=== PATIENT | male | born 1985 | race Caucasian/White ===

== ENCOUNTER → 2021-01-31 10:41 | Outpatient (BNVA) | payer OTHER, SELFPAY | PROVIDERS: PCP Nurse Practitioner Family; Visit Provider Nurse Practitioner Family | DX: Z20.822 Contact with and (suspected) exposure to COVID-19 (principal); K52.9 Noninfective gastroenteritis and colitis, unspecified | CPT/HCPCS: 80053; 85025; 86705; 86706; 86709; 86803; 87340; 87635 ==

== ENCOUNTER → 2021-04-11 15:31 | Outpatient (BNVA) | payer OTHER, SELFPAY | PROVIDERS: PCP Nurse Practitioner Family; Visit Provider Internal Medicine | DX: R19.7 Diarrhea, unspecified (principal); Z01.812 Encounter for preprocedural laboratory examination; Z20.828 Contact with and (suspected) exposure to other viral communicable diseases | CPT/HCPCS: 87635 ==

== ENCOUNTER 2021-04-17 14:27 | Emergency (ER) | payer OTHER, SELFPAY ==
[2021-04-17 14:43] VITALS: BP 138/91; PULSE 78; RESP 12; TEMP 36.8; O2SAT 97; BMI 31.9
--- NOTE | 2021-04-17 15:44 | ED_ITS ---
HPI - Nausea/Vomiting/Diarrhea General: Chief complaint: Nausea/Vomiting/Diarrhea Stated complaint: N/V/D Time Seen by Provider: 04/17/21 15:43 Source: patient History of Present Illness: HPI Narrative: recently stopped prescription meds and will be doing colonoscopy later this week after he sees specialist but developed NVD about 2 - 3 days ago MD elicited complaint: nausea, vomiting, diarrhea and abdominal pain Associated nausea: Yes Associated symtoms: Reports nausea Review of Systems General: Reports: 10 or more systems reviewed and unremarkable except in HPI and below Const: Reports: change in appetite; Denies: fever(s), chills or body aches GI: Reports: abdominal pain, nausea, vomiting and diarrhea PFSH ED PFSH: Social History Smoking and tobacco status: current some day smoker (Chewing tobacco) Second hand smoke exposure: No Smoking risk assessment/counseling performed?: Yes Alcohol intake: never Desire information about alcohol rehabilitation?: No Counseling given: No Desire information about substance/drug rehabilitation?: No Counseling given: No Adopted: No Caregiver/support person: No Lives independently: Yes Housing: House Highest education level completed: High School Graduate service: No Current occupational status: employed Physical Exam Const: COMMON NORMALS: no acute distress, patient oriented x3, no limitations and alert GENERAL APPEARANCE: cooperative and comfortable ORIENTATION/CONSCIOUSNESS: Yes awake, Yes oriented to person, Yes oriented to place and Yes oriented to time HENMT: COMMON NORMALS: normocephalic, atraumatic, external ears normal, EAC's normal, TM's normal bilaterally and Normal external nose present HEAD & SCALP: normal to inspection, normocephalic and atraumatic FACE & SINUS: normal facial exam, sinuses nontender and face symmetric NOSE: Normal external nose present, Normal nares present and No nasal discharge present EXTERNAL EAR: Yes external ears normal EXTERNAL AUDITORY CANAL: EAC's normal TYMPANIC MEMBRANE: TM's normal bilaterally MOUTH: Normal oral and palatal mucosa present, lip normal and tongue normal THROAT: posterior oropharynx normal, tonsils normal and uvula midline Eye: COMMON NORMALS: Equal, round and reactive pupils present, EOMs intact bilaterally and conjunctivae normal GENERAL EYE: appearance normal, both eyes and all related structures and normal light reflex EYELID: eyelids normal CONJUNCTIVA: Yes conjunctivae normal PUPIL: Yes Equal, round and reactive pupils present EOM: Yes EOM abnormal DIRECT OPHTHALMOSCOPY: Yes normal light reflex Neck/C-Spine: COMMON NORMALS: full ROM, no lymphadenopathy, supple, no meningeal signs, no JVD and Thyroid normal GENERAL: Yes normal visual inspection THYROID: Thyroid normal CERVICAL SPINE: Yes cervical ROM normal and Yes normal cervical lordosis Lymph: LYMPHATIC: no lymphadenopathy noted Chest: COMMONS NORMALS: normal inspection of the chest and normal palpation of entire chest wall Resp: COMMON NORMALS: normal respiratory effort, No retractions and clear to auscultation bilaterally AUSCULTATION: clear to auscultation bilaterally Cardio: COMMON NORMALS: no JVD, regular rate, regular rhythm, S1 normal heart sound present, S2 normal heart sound present, No gallops present (Cardio), No clicks present (Cardio), No murmurs present (Cardio), No rub (Cardio) and Peripheral pulses 2+ throughout RATE: regular rate RHYTHM: regular rhythm HEART SOUNDS: S1 normal heart sound present and S2 normal heart sound present PERIPHERAL PULSES: Peripheral pulses 2+ throughout GI: COMMON NORMALS: Normal to inspection, nondistended, normoactive bowel sounds present, Soft to palpation, non-tender, No hepatosplenomegaly present and no masses PALPATION: Yes Soft to palpation, Yes Tenderness to palpation present (GI) (epigastric) and Yes No hepatosplenomegaly present : COMMON NORMALS: Yes no CVA tenderness BLADDER/KIDNEY EXAM: Yes no CVA tenderness Back/Pelvis: COMMON NORMALS: no CVA tenderness, thoracic and lumbar spine normal to inspection, no thoracic nor lumbar tenderness and thoraco-lumbar ROM normal Extremity: COMMON NORMALS: normal to inspection, full ROM, capillary refill normal, no joint enlargement, no clubbing, cyanosis or edema, no calf tenderness and no pedal edema GENERAL: Yes normal exam except as noted Neuro: COMMON NORMALS: patient oriented x3, moves all extremities, no focal motor deficits, no sensory deficits noted and gait normal SENSORIUM/ORIENTATION: Yes alert, Yes oriented to person, Yes oriented to place and Yes oriented to time MENINGEAL SIGNS: Yes no meningeal signs Psych: COMMON NORMALS: mental status grossly normal, Normal thought process present, cooperative, normal affect, speech normal and activity/motor behavior normal SPEECH: Yes normal speech THOUGHT PROCESS: Normal thought process present Skin: COMMON NORMALS: no rashes or lesions noted, no wounds and turgor normal GENERAL SKIN EXAM: no rashes or lesions noted and turgor normal Course ED course: Pt states he has NVD after DC'ing prescription meds for IBS sympto ms. He will have further work up with his PCP but due to NVD he is not able to hold much liquid down and is afraid of becoming dehydrated prior to his colonoscopy later this week. Zofran and bentyl prescribed. Pt is afebrile. He does not note any specific pain. Will proceed with dc. Vital Signs: Vital signs: Vital Signs Temperature 98.2 F 04/17/21 14:43 Pulse Rate 78 04/17/21 14:43 Respiratory Rate 12 04/17/21 14:43 Blood Pressure 138/91 04/17/21 14:43 Pulse Oximetry 97 04/17/21 14:43 Discharge Plan Discharge Clinical Impression: Vomiting, Gastroenteritis Condition: Stable Prescriptions: New ondansetron HCl [Zofran] 4 mg tablet 4 mg PO Q8H Qty: 20 RF: 0 No Action ibuprofen 800 mg tablet 800 mg PO TID PRN (Reason: pain) Qty: 42 RF: 0 diphenoxylate-atropine [Lomotil] 2.5-0.025 mg tablet 2 tab PO QID PRN (Reason: diarrhea) Qty: 80 RF: 0 sertraline [Zoloft] 25 mg tablet 25 mg PO DAILY 30 Days Qty: 30 RF: 5 Discharge Orders: Discharge ED (Routine); Ordered 04/17/21 Ordered By: Chery Gama Referrals: Maria Dolores Jasmine FNP-C [Primary Care Provider] - Discharge Diet: Clear Liquid Discharge Activity: Increase activity as tolerated Stand Alone Forms: Work/School Release Coding Level of Care Code ED Stock And Station Agent for Paramjit Arango
[2021-04-17] MEDS: ondansetron 4 MG Tablet PO (16:49)
[2021-04-17] MEDS: dicyclomine 10 mg Capsule 20 MG PO (16:49)
[2021-04-17 16:57] VITALS: BP 132/89; PULSE 91; RESP 16; O2SAT 98
== END 2021-04-17 17:08 ==
PROVIDERS: Emergency Provider Nurse Practitioner Family; PCP Nurse Practitioner Family
DX: K52.9 Noninfective gastroenteritis and colitis, unspecified (principal); F17.220 Nicotine dependence, chewing tobacco, uncomplicated
CPT/HCPCS: 99283; Q0162

== ENCOUNTER 2021-04-18 07:37 | Day surgery (SDC) | payer OTHER, SELFPAY ==
[2021-04-14 12:39] VITALS: BMI 31.9
[2021-04-18 07:51] VITALS: BP 144/87; PULSE 81; RESP 16; TEMP 36.3; O2SAT 99
[2021-04-18] MEDS: sodium chloride 0.9% 1,000 ML 30 ML IV (08:03)
--- NOTE | 2021-04-18 08:07 | ANES.PREANE2 ---
Pre-Anesthetic Assessment Pre-Anesthetic Assessment: Height/Weight: Height 1.68 m Weight 89.811 kg Temp Pulse Resp BP Pulse Ox 97.3 F L 81 16 144/87 99 04/18/21 07:51 04/18/21 07:51 04/18/21 07:51 04/18/21 07:51 04/18/21 07:51 Preop Diagnosis: diarrhea Proposed Procedure: Operation Date: 04/18/21 08:45 Proposed Procedures p EGD/Colon 03365 R13.7(Not Applicable) - Rehan Mota MD s Colonoscopy 87785 R19.7(Not Applicable) - Rehan Mota MD Familial anesthetic complications: Hard waking up after nasal reconstruction Was Beta Tom taken within 24 hours: N/A Was Clonidine taken within 24 hours: N/A Last intake: Intake Last Liquid Date 04/17/21 Last Liquid Time 22:00 Last Solid Date 04/16/21 Last Solid Time 15:30 Social: Social History: No alcohol and No tobacco Exam: Pre-Anes Outpt Exam: alert, oriented x 3, clear to auscultation bilaterally and regular rate & rhythm Airway: MP: 3 Dentition: Chipped and Partials Anesthetic Plan: ASA status: 1 Anesthesia: MAC Risk of > 500 ml blood loss (7ml/kg in children): No Meds/Allergies Current Medications: Current Medications Generic Name Dose Route Start Last Admin Trade Name Freq PRN Reason Stop Dose Admin Sodium Chloride 1,000 mls @ 30 ml s/hr 04/18/21 07:45 04/18/21 08:03 Sodium Chloride 0.9% IV 04/19/21 07:44 30 mls/hr .Q24H KATHERINE Administration PFSH Anesthesia PFSH: Social History Smoking and tobacco status: current some day smoker (Chewing tobacco) Second hand smoke exposure: No Smoking risk assessment/counseling performed?: Yes Alcohol intake: never Desire information about alcohol rehabilitation?: No Counseling given: No Desire information about substance/drug rehabilitation?: No Counseling given: No Adopted: No Caregiver/support person: No Lives independently: Yes Housing: House Highest education level completed: High School Graduate service: No Current occupational status: employed Data Anesthesia Cardiac Studies: No Data to Display
--- NOTE | 2021-04-18 08:45 | P.HP_ITS ---
Same Day Surgery H&P Indication for Procedure/HPI DATE OF PROCEDURE: April 18, 2021 CHIEF COMPLAINT/INDICATIONFOR SURGICAL PROCEDURE: Bloody diarrhea PREOP DIAGNOSIS: diarrhea PLANNED PROCEDRUE: Operation Date: 04/18/21 08:45 Proposed Procedures p EGD/Colon 92785 R13.7(Not Applicable) - Rehan Mota MD s Colonoscopy 31663 R19.7(Not Applicable) - Rehan Mota MD Medications/Allergies* Allergies/Adverse Reactions Allergy/AdvReac Type Severity Reaction Status Date / Time No Known Allergies Allergy Verified 04/17/21 14:42 Current Medications: Generic Name Dose Route Start Last Admin Trade Name Freq PRN Reason Stop Dose Admin Sodium Chloride 1,000 mls @ 30 mls/hr 04/18/21 07:45 04/18/21 08:03 Sodium Chloride 0.9% IV 04/19/21 07:44 30 mls/hr .Q24H KATHERINE Administration Pertinent History/Comorbid Conditions* Social History Smoking and tobacco status: current some day smoker (Chewing tobacco) Second hand smoke exposure: No Smoking risk assessment/counseling performed?: Yes Alcohol intake: never Desire information about alcohol rehabilitation?: No Counseling given: No Desire information about substance/drug rehabilitation?: No Counseling given: No Adopted: No Caregiver/support person: No Lives independently: Yes Housing: House Highest education level completed: High School Graduate service: No Current occupational status: employed Pertinent Exam Findings alert, oriented x 3, clear to auscultation bilaterally, regular rate & rhythm, operative site marked and procedure specific exam findings Recommendations Surgery/Procedure today Coding Level of Care Code Acute Cleaning Manager for Paramjit Arango
[2021-04-18 09:37] VITALS: BP 126/76; PULSE 93; RESP 16; TEMP 36.1; O2SAT 96
--- NOTE | 2021-04-18 13:32 | ANE.PACU2 ---
Inpatient post-anesthesia follow up: Airway intact: Yes Vital signs: Temperature 97 F Pulse Rate 93 Respiratory Rate 16 Blood Pressure 126/76 Pulse Oximetry 96 Oxygen Delivery Me thod Room Air Oxygen Flow Rate Fraction of Inspir ed Oxygen Hydration adequate: Yes Nausea and vomiting: No Pain level: 1 Mental status: Baseline
[2021-04-19 11:14] LABS: H. Pylori / CLO Test Negative
== END 2021-04-18 10:11 | disposition home or self-care (01) ==
PROVIDERS: PCP Nurse Practitioner Family; Visit Provider Internal Medicine
PROC: 0DJ08ZZ Inspection of Upper Intestinal Tract, Via Natural or Artificial Opening Endoscopic (ICD-10-PCS; CPT 43235; principal; 2021-04-18 08:45)
PROC: 0DJD8ZZ Inspection of Lower Intestinal Tract, Via Natural or Artificial Opening Endoscopic (ICD-10-PCS; CPT 45378; 2021-04-18 08:45)
DX: R19.7 Diarrhea, unspecified (principal); R11.2 Nausea with vomiting, unspecified; D12.4 Benign neoplasm of descending colon; K29.70 Gastritis, unspecified, without bleeding; F17.210 Nicotine dependence, cigarettes, uncomplicated
CPT/HCPCS: 43239; 45385; 87077; 88305; 96360; 96361; J2704; J7030